=== PATIENT | female | born 1960 | race Caucasian/White ===

== ENCOUNTER → 2023-10-03 09:08 | Outpatient (REF) | payer OTHER, SELFPAY | LOC: WDC 09:08 | PROVIDERS: ATTENDING PHYSICIAN Obstetrics & Gynecology Gynecology; FAMILY PHYSICIAN Nurse Practitioner Adult Health | DX: Z12.31 Encounter for screening mammogram for malignant neoplasm of breast (principal); Z01.419 Encounter for gynecological examination (general) (routine) without abnormal findings | CPT/HCPCS: 77063; 77067 ==

== ENCOUNTER → 2024-10-11 10:40 | Outpatient (REF) | payer OTHER, SELFPAY | LOC: WDC 10:40 | PROVIDERS: ATTENDING PHYSICIAN Obstetrics & Gynecology Gynecology; FAMILY PHYSICIAN Nurse Practitioner Adult Health | DX: Z12.31 Encounter for screening mammogram for malignant neoplasm of breast (principal) | CPT/HCPCS: 77063; 77067 ==